=== PATIENT | male | born 1995 | race Caucasian/White ===

== ENCOUNTER 2019-10-06 18:39 | Emergency (ER) | payer SELFPAY ==
[~2019-10-06] VITALS: Ht 177.8 cm; Wt 65.0 kg
[2019-10-06 18:52] VITALS: BP 120/76
== END 2019-10-06 23:15 | disposition left against medical advice (07) ==
LOC: ER 18:39
DX: S00.81XA Abrasion of other part of head, initial encounter (principal); S00.01XA Abrasion of scalp, initial encounter; R56.9 Unspecified convulsions; X58.XXXA Exposure to other specified factors, initial encounter; Y93.89 Activity, other specified; Y92.89 Other specified places as the place of occurrence of the external cause; Y99.8 Other external cause status
CPT/HCPCS: 99283